=== PATIENT | male | born 1990 | race Caucasian/White ===

== ENCOUNTER 2019-11-15 12:09 | Emergency (ER) | payer OTHER, SELFPAY ==
--- NOTE | 2019-11-15 12:18 | ED.EAR ---
HPI - Ear Problem General Chief complaint: Upper Respiratory Infection Stated complaint: ear ache cant swollow Time Seen by Provider: 11/15/19 12:18 Source: patient and RN notes reviewed Mode of arrival: ambulatory Limitations: no limitations History of Present Illness HPI Narrative: patient states he has been having right ear pain for the last 10 days. Says is going down into his neck. After further questioning it seems more in his right neck. He says having difficulty swallowing has not really been able to eat more solid foods lately. He denies any fever chills. MD Complaint: ear pain Location: right ear Duration: constant Severity: moderate Relieving factors: nothing Exacerbating factors: chewing and palpation Discharge from ear: Reports no Associated symptoms ear: neck pain and neck swelling Treatment prior to arrival: none Related Data Home Medications Medication Instructions Recorded Confirmed No Home Medications 11/15/19 11/15/19 Allergies Allergy/AdvReac Type Severity Reaction Status Date / Time Penicillins Allergy Unknown Verified 03/06/19 18:33 Review of Systems Constitutional: Constitutional: Denies chills and Denies fever(s) Eyes: Eyes: Reports no additional eye complaints ENT: Reports dysphagia and Reports sore throat Cardiovascular: Cardiovascular: Reports no additional cardiovascular complaints Respiratory: Respiratory: Reports no additional respiratory complaints Gastrointestinal: Gastrointestinal: Reports no additional gastrointestinal complaints Musculoskeletal: Musculoskeletal: Reports no additional musculoskeletal complaints Integumentary/Breasts: Skin/Breast: Reports system reviewed and no additional complaints, except as docu Neurologic: Reports system reviewed and no additional complaints, except as documented Psychiatric: Psychiatric: Reports no additional psychiatric complaints PMFSH Past Medical History Medical History (Updated 11/15/19 @ 13:01 by Robinson Clement MD) No active medical problems Surgical History Surgical History (Updated 11/15/19 @ 12:33 by Robinson Clement MD) No pertinent past surgical history Social History Social History (Updated 11/15/19 @ 12:34 by Robinson Clement MD) Smoking status: Current every day smoker Tobacco type: cigarettes Alcohol intake: current Alcohol use details: occasional Substance use: never Exam Const: General: healthy appearing, no acute distress and alert Nutritional Appearance: well nourished Orientation/consciousness: patient oriented x3 Eyes: Conjunctivae: conjunctivae normal Pupils: Equal, round and reactive pupils present EOM: EOMs intact bilaterally Neck: Neck: lymphadenopathy right anterior cervical soft, mobile and tender Resp: Effort & Inspection: normal respiratory effort Auscultation: clear to auscultation bilaterally Cardio: Rate: regular rate Rhythm: regular rhythm GI: Auscultation: normal bowel sounds Back/Spine/Pelvis: Cervical Spine: cervical ROM normal Thoracic/Lumbar Spine: thoraco-lumbar ROM normal Skin: General skin exam: normal color Rashes: no rashes Neuro: General: patient oriented x3, moves all extremities and no focal motor deficits Speech: normal speech Gait exam (Neuro): Normal gait present Extrem: General: normal to inspection and no clubbing, cyanosis or edema Psych: Appearance: grossly normal and well kempt Mental Status: mental status grossly normal Affect: normal affect Attitude: cooperative Thought content: Yes Normal thought content present Medical Decision Making MDM Narrative Medical decision making narrative: Patient has pustules and necrotic tissue on his right tonsil. Foul order. Consider strep versus Neisseria gonorrhea verses mono. Will treat today with Rocephin IM and Zithromax. Follow up with primary care if not significantly improved. Lab Data Lab results reviewed: Yes I reviewed the patient's lab results. Discharge Plan Disc
[2019-11-15 12:20] VITALS: BP 185/88; PULSE 89; RESP 20; TEMP 35.5; O2SAT 98
[2019-11-15 12:56] VITALS: BP 150/67; PULSE 75; RESP 20; TEMP 35.5; O2SAT 98
--- NOTE | 2019-11-15 13:01 | PHAR ---
11/15/19-MD AWARE OF PCN ALLERGY, WANTS TO PROCEED WITH ROCEPHIN. ADVISED 20% CHANCE OF CROSS-SENSITIVITY. TLS
[2019-11-15] MEDS: cefTRIAXone 250 MG VIAL IM (13:07)
[2019-11-15] MEDS: AZITHROMYCIN 250 MG TABLET 1000 MG PO (13:07)
== END 2019-11-15 13:30 | disposition home or self-care (01) ==
PROVIDERS: Emergency Provider Emergency Medicine
DX: J02.9 Acute pharyngitis, unspecified (principal); F17.200 Nicotine dependence, unspecified, uncomplicated
CPT/HCPCS: 87081; 87880; 96372; 99283; A9270; J0696

== ENCOUNTER 2021-08-19 13:56 | Emergency (ER) | payer OTHER, SELFPAY ==
--- NOTE | 2021-08-19 14:20 | ED.URI ---
HPI - URI/Sore Throat General Chief Complaint: Upper Respiratory Infection Stated Complaint: sore throat, ear pressure, congestion Time Seen by Provider: 08/19/21 14:30 Source: patient and RN notes reviewed Mode of arrival: ambulatory Limitations: no limitations History of Present Illness HPI Narrative: 31-year-old male presents with concern for sore throat with white spots, nasal congestion, rhinorrhea for over 1 week. Reports painful swallowing since yesterday. He denies any [id number] intervention. He denies fever, body aches, chills, sweats, cough. MD elicited complaint: sore throat and nasal congestion Related Data Allergies Allergy/AdvReac Type Severity Reaction Status Date / Time Penicillins Allergy Unknown Verified 03/06/19 18:33 Review of Systems Review of Systems: CONSTITUTIONAL: Denies malaise, chills, sweats, or fever. EYES: Denies visual changes, redness, or discharge. ENT: Reports rhinorrhea, congestion, sinus pain, otalgia and sore throat. CARDIOVASCULAR: Denies chest pain, palpitations, or edema. RESPIRATORY: Denies cough. Denies dyspnea. GASTROINTESTINAL: Denies abdominal pain, nausea, vomiting, diarrhea SKIN: Denies rash or itching. MUSCULOSKELETAL: Denies myalgia. NEUROLOGIC: Denies headache. All systems reviewed & are unremarkable except as noted in HPI and below PMFSH Past Medical History Medical History (Updated 08/19/21 @ 14:39 by Madeline Mcdonald NP) No active medical problems Surgical History Surgical History (Updated 11/15/19 @ 12:33 by Robinson Clement MD) No pertinent past surgical history Social History Social History (Updated 11/15/19 @ 12:34 by Robinson Clement MD) Smoking status: Current every day smoker Tobacco type: cigarettes Alcohol intake: current Alcohol use details: occasional Substance use: never Comments At time of signature, agree with nursing past medical, surgical, social and family history. There is no relevant family history pertinent to the presenting complaint Exam Narrative: GENERAL: Well-appearing, well-nourished, and in no acute distress. HEAD: Normocephalic EYES: PERRLA, conjunctivae clear ENT: Nares clear, turbinates edematous and erythematous, sinus tenderness. Mucous membranes moist. TM pearly mitchell with dull light reflex bilaterally; no tragal tenderness. Oropharynx erythematous without lesions. Tonsils enlarged with exudate, no drooling, no hoarseness, no trismus, uvula midline. NECK: Supple. No lymphadenopathy CHEST: Clear to auscultation, breath sounds equal. No wheezing, rhonchi, rales, or stridor. No respiratory distress, speaks in full sentences. HEART: Regular rate and rhythm. No murmur heard. SKIN: Warm, dry, no rash. NEURO: Alert and oriented x3. PSYCH: Normal mood and affect Course Course Emergency Course: Patient is aware of diagnosis, understands and agrees to treatment plan. Anticipatory guidance given. Patient agrees to follow-up as directed and is aware of reasons to seek care at the emergency department. Portions of this record may have been created with voice recognition software Level of Care: Express Care Visit Vital Signs Vital signs: Reviewed. MDM - URI/Sore Throat MDM Narrative Medical decision making narrative: Differential diagnosis considered: Prabhakar virus, strep pharyngitis, allergic rhinitis, upper respiratory tract infection, sinusitis, rhinosinusitis, nasopharyngitis. viral pharyngitis, otitis media, otitis externa, pneumonia, bronchitis, viral cough syndrome, viral syndrome, and influenza. Exam findings show no acute concerns or changes; patient is non-toxic appearing and is in no distress. Patient is appropriate for outpatient treatment and follow-up. Lab Data Attestation: I reviewed the patient's lab results. Critical Care Time Critical Care Time Critical Care Time: No Discharge Plan Discharge Clinical Impression: Acute bacterial sinusitis Patient Disposition: Home, Self-Care Condition
== END 2021-08-19 14:50 | disposition home or self-care (01) ==
PROVIDERS: Emergency Provider Nurse Practitioner
DX: J01.90 Acute sinusitis, unspecified (principal); F17.210 Nicotine dependence, cigarettes, uncomplicated
CPT/HCPCS: 87081; 87880; 99213; G0463

== ENCOUNTER 2023-05-14 15:09 | Emergency (ER) | payer OTHER, SELFPAY ==
[2023-05-14 15:10] VITALS: BP 116/77; PULSE 89; RESP 18; TEMP 36.3; O2SAT 100
--- NOTE | 2023-05-14 18:34 | PC.NURSE ---
called for room with no answer
== END 2023-05-14 18:34 | disposition left against medical advice (07) ==
DX: R11.2 Nausea with vomiting, unspecified (principal)
CPT/HCPCS: 99199